=== PATIENT | female | born 1955 | race Caucasian/White ===

== ENCOUNTER 2017-08-15 05:46 | Inpatient (IN) | payer OTHER ==
[~2017-08-15 05:46] MED LIST: oxyCODONE HCL 5 MG TABLET PO ONE
[2017-08-15] MEDS ORDERED: TRANEXAMIC ACID 1000 MG/10 ML VIAL ONE (06:39)
[2017-08-15] MEDS ORDERED: ONDANSETRON 4 MG/2 ML VIAL ONE (06:40)
[2017-08-15] MEDS ORDERED: DEXAMETHASONE SOD PHOSPHATE 4 MG/1 ML VIAL ONE (06:40)
[2017-08-15] MEDS ORDERED: ceFAZolin SODIUM 1 GM VIAL ONE (06:40)
[2017-08-15] MEDS ORDERED: VANCOMYCIN 1,000 MG VIAL (RESTRICTED TO ID ONLY) ONE (06:40)
[2017-08-15] MEDS ORDERED: PROPOFOL 20 ML ONE ×4 (06:40→10:01)
[2017-08-15] MEDS ORDERED: MIDAZOLAM HCL 2 MG/2 ML SINGLE DOSE VIAL ONE (06:41)
[2017-08-15] MEDS ORDERED: BUPIVACAINE LIPOSOME/PF (EXPAREL) 266 MG/20 ML VIAL ONE (06:44)
[2017-08-15] MEDS ORDERED: BUPIVACAINE HCL/PF 2.5 MG/ML - 30 ML VIAL IJ ONE (06:44)
[2017-08-15 06:50] VITALS: BMI 30.6
[2017-08-15] MEDS ORDERED: BUPIVACAINE HCL/PF (5 MG/ML) 30 ML VIAL IJ ONE (06:58)
[2017-08-15] MEDS ORDERED: PHENYLEPHRINE HCL 10 MG/1 ML SINGLE DOSE VIAL ONE (08:32)
[2017-08-15] MEDS ORDERED: KETOROLAC TROMETHAMINE 30 MG/1 ML VIAL ONE (08:57)
[2017-08-15] MEDS ORDERED: BENZOIN/ALOE VERA/STORAX/TOLU 58 ML BOTTLE ONE (10:41)
--- NOTE | 2017-08-15 10:50 | OP ---
Operative Note - Note: Operative Date: 08/15/17 Pre-Operative Diagnosis: Left knee endoprosthesis arthrofibrosis Operation: 1. Revision left knee endoprosthesis. 2. Exchange of polyethylene liner Findings: Arthrofibrosis Implants: DePuy LPS Post-Operative Diagnosis: Same as Pre-op Surgeon: Apolinar Uribe Cleaner Carpet And Upholstery: Jordan Uribe Anesthesiologist/CLOTH FINISHING RANGE BACK TENDER: Jethro Herrera Anesthesia: Spinal Specimens Removed: Polyethylene liner. Left knee arthrofibrosis Estimated Blood Loss (mls): 50 Drains & Tubes with Location: 1 x deep HemoVac Fluid Volume Replaced (mls): 1,000 Operative Report Dictated: Yes
[2017-08-15] MEDS ORDERED: MAGNESIUM HYDROX 2400MG/30ML ORAL SUSPENSION 30 ML CUP PO PRN (10:54)
[2017-08-15] MEDS ORDERED: MAG HYDROX/AL HYDROX/SIMETH 30 ML UNIT-DOSE CUP PO PRN (10:54)
--- NOTE | 2017-08-15 10:54 | PN ---
Progress Note (short form) - Note Progress Note: 62F s/p revision left knee endoprosthesis TKA POD #0. -Pain control. -DVT PPx: -Chemical: ASA 81mg PO BID x 6 weeks. -Mechanical: SCD's, ALDEN's. -Incentive spirometry. -PT/OT/Rehab, OOB. -WBAT LLE. -f/u AM labs. -f/u OR pathology. -Diet as tolerated. -f/u drain output. -Care per medical hospitalist team. -Discharge planning: f/u [facility] [place] [facility] 08/23/2017; call for appointment: . -Will follow. Apolinar Uribe MD (Orthopaedic Surgery).
[2017-08-15] MEDS ORDERED: LACTATED RINGERS SOLUTION 1,000 ML IV SCH ×2 (11:00→11:30)
[2017-08-15] MEDS ORDERED: oxyCODONE HCL 5 MG TABLET PO PRN ×2 (11:20→11:50)
[2017-08-15] MEDS ORDERED: ONDANSETRON 4 MG/2 ML VIAL IVPUSH PRN (11:20)
[2017-08-15] MEDS ORDERED: ONDANSETRON 4 MG/2 ML VIAL IVPUSH ONE (11:47)
[2017-08-15] MEDS ORDERED: ACETAMINOPHEN 325 MG TABLET (FP) ONE (11:53)
[2017-08-15] MEDS ORDERED: ACETAMINOPHEN 325 MG TABLET (FP) PO ONE (12:00)
[2017-08-15] MEDS ORDERED: oxyCODONE HCL 5 MG TABLET ONE (13:04)
[2017-08-15] MEDS ORDERED: LORATADINE 10 MG TABLET PO PRN (16:32)
[2017-08-15] MEDS: oxyCODONE HCL 5 MG TABLET PO PRN ×2 (17:15→20:11)
[2017-08-15] MEDS: CEFAZOLIN 1 GM/D5W 1 GM/50 ML BAG IVPB SCH (17:18)
[2017-08-15] MEDS: ACETAMINOPHEN 325 MG TABLET (FP) PO SCH (17:18)
[2017-08-15] MEDS: ONDANSETRON 4 MG/2 ML VIAL IVPUSH PRN (18:40)
[2017-08-15] MEDS: oxyCODONE HCL 10 MG SUSTAINED ACTING TABLET PO SCH (21:31)
[2017-08-15] MEDS: ASPIRIN 81 MG CHEWABLE TABLETS PO SCH (21:32)
[2017-08-15] MEDS: SENNOSIDES/DOCUSATE COMBO (SENNA PLUS) TABLET (UD) PO SCH (21:32)
[2017-08-15] MEDS: GABAPENTIN 300 MG CAPSULE (FP) PO SCH (21:32)
[2017-08-16] MEDS: CEFAZOLIN 1 GM/D5W 1 GM/50 ML BAG IVPB SCH (00:31)
[2017-08-16] MEDS: ACETAMINOPHEN 325 MG TABLET (FP) PO SCH ×5 (00:31→23:04)
[2017-08-16] MEDS: oxyCODONE HCL 5 MG TABLET PO PRN ×4 (00:33→21:53)
[2017-08-16] MEDS: ONDANSETRON 4 MG/2 ML VIAL IVPUSH PRN (05:37)
[2017-08-16 08:59] LABS: HEMATOCRIT 34.5 % (32.4-45.2); HEMOGLOBIN 12.4 GM/dl (10.7-15.3); MCH 32.4 pg (25.7-33.7); MCHC 35.8 g/dl (32.0-36.0); MEAN CELL VOLUME 90.4 fl (80-96); MEAN PLT VOLUME 8.2 fl (7.5-11.1); PLATELET COUNT 290 K/MM3 (134-434); RBC 3.81 M/mm3 (3.60-5.2); RDW 13.2 % (11.6-15.6); WHITE BLOOD COUNT 14.1 K/mm3 (4.0-10.8)
[2017-08-16 09:05] LABS: ANION GAP 9 (8-16); BLOOD UREA NITROGEN 14 mg/dl (7-18); CALCIUM 8.8 mg/dl (8.4-10.2); CHLORIDE 105 mmol/L (98-107); CO2 26 mmol/L (22-28); CREATININE 0.7 mg/dl (0.6-1.3); GLUCOSE,RANDOM 142 mg/dl (74-106); POTASSIUM 4.1 mmol/L (3.5-5.1); SODIUM 140 mmol/L (136-145)
[2017-08-16] MEDS: GABAPENTIN 300 MG CAPSULE (FP) PO SCH ×2 (09:57→21:45)
[2017-08-16] MEDS: VALSARTAN 160 MG TABLET (UD) PO SCH (09:57)
[2017-08-16] MEDS: oxyCODONE HCL 10 MG SUSTAINED ACTING TABLET PO SCH ×2 (09:57→21:46)
[2017-08-16] MEDS: ASPIRIN 81 MG CHEWABLE TABLETS PO SCH ×2 (09:57→21:45)
[2017-08-16] MEDS: PANTOPRAZOLE 40 MG TABLET (FP) PO SCH (09:58)
[2017-08-16] MEDS: amLODIPine BESYLATE 5 MG TABLET (FP) PO SCH (09:58)
[2017-08-16] MEDS: SENNOSIDES/DOCUSATE COMBO (SENNA PLUS) TABLET (UD) PO SCH ×2 (09:58→21:46)
[2017-08-16] MEDS ORDERED: PATIENT'S OWN MEDICATION (NON-FORMULARY) (Amlodipine/Valsartan [Exforge 5-160 Mg Tablet] 1 PO SCH (10:00)
--- NOTE | 2017-08-16 10:01 | CONSULT ---
Consultation: REQUESTING PROVIDER: Dr Uribe CONSULT REQUEST: We have been asked to medically evaluate this patient for medical management. HISTORY OF PRESENT ILLNESS:Patient is a 62-year-old female, with a past medical history of hypertension, Osteoarthritis and osteosarcoma. Patient is status post left revision left knee with replacement, Dr Uribe, spinal anesthesia. REVIEW OF SYSTEMS: CONSTITUTIONAL: Absent: fever, chills, diaphoresis, generalized weakness, malaise, loss of appetite, weight change HEENT: Absent: rhinorrhea, nasal congestion, throat pain, throat swelling, difficulty swallowing, mouth swelling, ear pain, eye pain, visual changes CARDIOVASCULAR: Absent: chest pain, syncope, palpitations, irregular heart rate, lightheadedness , peripheral edema RESPIRATORY: Absent: cough, shortness of breath, dyspnea with exertion, orthopnea, wheezing, stridor, hemoptysis GASTROINTESTINAL: Absent: abdominal pain, abdominal distension, nausea, vomiting, diarrhea, constipation, melena, hematochezia GENITOURINARY: Absent: dysuria, frequency, urgency, hesitancy, hematuria, flank pain, genital pain MUSCULOSKELETAL: present: left knee pain Absent: myalgia, arthralgia, joint swelling, back pain, neck pain SKIN: Absent: rash, itching, pallor HEMATOLOGIC/IMMUNOLOGIC: Absent: easy bleeding, easy bruising, lymphadenopathy, frequent infections ENDOCRINE: Absent: unexplained weight gain, unexplained weight loss, heat intolerance, cold intolerance NEUROLOGIC: Absent: headache, focal weakness or paresthesias, dizziness, unsteady gait, seizure, mental status changes, bladder or bowel incontinence PSYCHIATRIC: Absent: anxiety, depression, suicidal or homicidal ideation, hallucinations. PHYSICAL EXAMINATION Vital Signs - 24 hr 08/15/17 08/15/17 08/15/17 11:17 11:23 11:28 Temperature 98 F Pulse Rate 86 85 80 Respiratory 16 16 16 Rate Blood Pressure 126/67 128/78 127/89 O2 Sat by Pulse 95 96 Oximetry (%) 08/15/17 08/15/17 08/15/17 11:33 11:45 12:00 Temperature Pulse Rate 77 83 79 Respiratory 16 16 16 Rate Blood Pressure 118/72 114/74 122/72 O2 Sat by Pulse 97 97 98 Oximetry (%) 08/15/17 08/15/17 08/15/17 12:15 12:30 12:45 Temperature Pulse Rate 81 73 76 Respiratory 16 16 16 Rate Blood Pressure 107/71 115/72 112/67 O2 Sat by Pulse 96 96 96 Oximetry (%) 08/15/17 08/15/17 08/15/17 13:00 13:50 21:00 Temperature 98.3 F 97.7 F Pulse Rate 76 74 Respiratory 16 16 16 Rate Blood Pressure 122/66 113/68 O2 Sat by Pulse 97 97 Oximetry (%) 08/15/17 08/16/17 22:00 06:00 Temperature 97.8 F 97.9 F Pulse Rate 79 81 Respiratory 20 19 Rate Blood Pressure 108/64 118/60 O2 Sat by Pulse 92 L 95 Oximetry (%) GENERAL: Awake, alert, and fully oriented, in no acute distress. HEAD: Normal with no signs of trauma. EYES: Pupils equal, round and reactive to light, extraocular movements intact, sclera anicteric, conjunctiva clear. No lid lag. EARS, NOSE, THROAT: Ears normal, nares patent, oropharynx clear without exudates. Moist mucous membranes. NECK: Normal range of motion, supple without lymphadenopathy, JVD, or masses. LUNGS: Breath sounds equal, clear to auscultation bilaterally. No wheezes, and no crackles. No accessory muscle use. HEART: Regular rate and rhythm, normal S1 and S2 without murmur, rub or gallop. ABDOMEN: Soft, nontender, not distended, normoactive bowel sounds, no guarding, no rebound, no masses. No hepatomegaly or splenomegaly. MUSCULOSKELETAL: Normal range of motion at all joints. No bony deformities or tenderness. No CVA tenderness. UPPER EXTREMITIES: 2+ pulses, warm, well-perfused. No cyanosis. No clubbing. Cap refill <2 seconds. No peripheral edema. LOWER EXTREMITIES: 2+ pulses, warm, well-perfused. No calf tenderness. No peripheral edema. LEFT LOWER EXTREMITY: Dressing CDI, less than 2 second capillary refill +3 pedal pulses Hemovac drainage scant drainage noticed NEUROLOGICAL: Cranial nerves II-XII intact. Normal speech. Normal gait. PSYCHIATRIC: Cooperative. Good eye contact. Appropriate mood and affect. SKIN: Warm, dry, normal turgor, no rashes or lesions noted. Laboratory Results - last 24 hr 08/15/17 08/15/17 08/16/17 09:24 09:24 08:30 WBC 14.1 H RBC 3.81 Hgb 12.4 Hct 34.5 MCV 90.4 MCH 32.4 MCHC 35.8 RDW 13.2 Plt Count 290 MPV 8.2 Sodium Potassium Chloride Carbon Dioxide Anion Gap BUN Creatinine Creat Clearance w eGFR Random Glucose Calcium Hep C Ab Diagnostic <0.1 Liver Fibrosis Interp HIV 1&2 Antibody Screen Negative HIV P24 Antigen Negative 08/16/17 08:30 WBC RBC Hgb Hct MCV MCH MCHC RDW Plt Count MPV Sodium 140 Potassium 4.1 Chloride 105 Carbon Dioxide 26 Anion Gap 9 BUN 14 Creatinine 0.7 Creat Clearance w eGFR > 60 Random Glucose 142 H Calcium 8.8 Hep C Ab Diagnostic Liver Fibrosis Interp HIV 1&2 Antibody Screen HIV P24 Antigen Active Medications Generic Name Dose Route Start Last Admin Trade Name Freq PRN Reason Stop Dose Admin Acetaminophen 650 mg 08/15/17 12:00 08/16/17 05:46 Tylenol - PO 08/18/17 11:59 650 mg Q6H DONTE Administration Al Hydroxide/Mg Hydroxide 30 ml 08/15/17 10:54 Mylanta Oral Suspension - PO Q4H PRN DYSPEPSIA Amlodipine Besylate 5 mg 08/16/17 10:00 08/16/17 09:58 Norvasc - PO 5 mg DAILY DONTE Administration Aspirin 81 mg 08/15/17 22:00 08/16/17 09:57 Asa - PO 81 mg BID DONTE Administration Fentanyl 25 mcg 08/15/17 11:20 Sublimaze Injection - IVPUSH [id number] PRN PAIN-PACU ORDER X 4 DOSES ONLY Gabapentin 300 mg 08/15/17 22:00 08/16/17 09:57 Neurontin - PO 300 mg BID DONTE Administration Lactated Ringer's 1,000 mls @ 75 mls/hr 08/15/17 11:30 Lactated Ringers Solution IV ASDIR DONTE Loratadine 10 mg 08/15/17 16:32 Claritin - PO Q24H PRN NASAL CONGESTION Magnesium Hydroxide 30 ml 08/15/17 10:54 Milk Of Magnesia - PO PRN PRN CONSTIPATION Ondansetron HCl 4 mg 08/15/17 10:54 08/16/17 05:37 Zofran Injection IVPUSH 4 mg Q6H PRN Administration NAUSEA Ondansetron HCl 4 mg 08/15/17 11:20 Zofran Injection IVPUSH Q6H PRN NAUSEA AND/OR VOMITING Oxycodone HCl 10 mg 08/15/17 11:50 08/16/17 05:45 Roxicodone - PO 10 mg Q3H PRN Administration PAIN LEVEL 6-10 Oxycodone HCl 5 mg 08/15/17 11:50 Roxicodone - PO Q3H PRN PAIN LEVEL 1-5 Oxycodone HCl 10 mg 08/15/17 22:00 08/16/17 09:57 Oxycontin - PO 08/18/17 11:50 10 mg BID DONTE Administration Pantoprazole Sodium 40 mg 08/16/17 10:00 08/16/17 09:58 Protonix - PO 40 mg DAILY DONTE Administration Senna/Docusate Sodium 1 tablet 08/15/17 22:00 08/16/17 09:58 Pericolace - PO 1 tablet BID DONTE Administration Valsartan 160 mg 08/16/17 10:00 08/16/17 09:57 Diovan - PO 160 mg DAILY DONTE Administration ASSESSMENT/PLAN: 1) MS S/P last total knee replacement (revision) postoperative day 1 - Physical therapy as per orthopedist - repeat hemoglobin this morning 12.4, close mnonitoring of H&H and Hemovac drainage - incentive spirometer 2) cardiovascular hypertension - continue diovan and norvasc - blood pressure at goal, strict monitoring Dispo: We will continue to follow the patient. Thank you for this consultative opportunity.
--- NOTE | 2017-08-16 13:37 | PATH ---
Surgical Pathology Report Patient Name: SHASHI RODRIGUEZ Med. Rec. #: [id number] /Age/Gender: 1955 (Age: 62) / F Account: [id number] Location: [facility] MED-SURG Taken: 08/15/2017 Received: 08/15/2017 Reported: 08/16/2017 Physicians: Apolinar Uribe M.D. Specimen(s) Received A: LEFT KNEE FIBROSIS B: TIBIAL INSERT Clinical History Failed prosthesis Final Diagnosis A. KNEE, LEFT, FIBROSIS, LEFT TOTAL KNEE REPLACEMENT REVISION: BENIGN DENSE FIBROUS TISSUE. B. TIBIAL INSERT, REMOVAL: SURGICAL HARDWARE. MACROSCOPIC DIAGNOSIS. Electronically Signed Desirae Keys M.D. Gross Description A. Received in formalin labeled "left knee fibrosis," and a 7.5 x 6.0 x 1.0 cm aggregate of blair, soft and fibrous tissue fragments. Global Security Architect sections are submitted in one cassette. B. Received fresh labeled "tibial insert," is an 8.0 x 5.4 x 3.7 cm roque metallic and white plastic foreign body, consistent with a knee prosthesis. No soft tissue is present. No sections are submitted, gross only. /08/15/2017 saudi08/15/2017
[2017-08-17] MEDS: ACETAMINOPHEN 325 MG TABLET (FP) PO SCH ×2 (06:17→12:41)
[2017-08-17 06:31] VITALS: TEMP 98.6
[2017-08-17 08:59] LABS: HEMATOCRIT 34.2 % (32.4-45.2); HEMOGLOBIN 11.9 GM/dl (10.7-15.3); MCH 31.4 pg (25.7-33.7); MCHC 34.8 g/dl (32.0-36.0); MEAN CELL VOLUME 90.4 fl (80-96); MEAN PLT VOLUME 8.1 fl (7.5-11.1); PLATELET COUNT 298 K/MM3 (134-434); RBC 3.78 M/mm3 (3.60-5.2); RDW 13.4 % (11.6-15.6)
[2017-08-17] MEDS: GABAPENTIN 300 MG CAPSULE (FP) PO SCH (09:37)
[2017-08-17] MEDS: VALSARTAN 160 MG TABLET (UD) PO SCH (09:37)
[2017-08-17] MEDS: ASPIRIN 81 MG CHEWABLE TABLETS PO SCH (09:37)
[2017-08-17] MEDS: amLODIPine BESYLATE 5 MG TABLET (FP) PO SCH (09:38)
[2017-08-17] MEDS: PANTOPRAZOLE 40 MG TABLET (FP) PO SCH (09:38)
[2017-08-17] MEDS: oxyCODONE HCL 10 MG SUSTAINED ACTING TABLET PO SCH (09:38)
[2017-08-17] MEDS: SENNOSIDES/DOCUSATE COMBO (SENNA PLUS) TABLET (UD) PO SCH (09:38)
--- NOTE | 2017-08-17 12:17 | DS ---
Physical Exam: SUBJECTIVE: Patient seen and examined, patient Ambulated physical therapy reports feeling well denies any paresthesias to left lower extremity, reports pain upon movement, patient denies any chest pain or shortness of breath OBJECTIVE:Patient is a 62-year-old female, with a past medical history of hypertension, Osteoarthritis and osteosarcoma. Patient is status post left revision left knee with replacement, Dr Uribe, spinal anesthesia. Vital Signs Period Temp Pulse Resp BP Sys/Tee Pulse Ox Last 24 Hr 97.6 F-98.6 F 78-104 16-18 119-132/63-74 91-98 PHYSICAL EXAM LABS Laboratory Results - last 24 hr 08/17/17 08:00 WBC 11.0 H RBC 3.78 Hgb 11.9 Hct 34.2 MCV 90.4 MCH 31.4 MCHC 34.8 RDW 13.4 Plt Count 298 MPV 8.1 HOSPITAL COURSE: Date of Admission:08/15/17 Date of Discharge: 08/17/17 Minutes to complete discharge: 45 Discharge Summary - Instructions Diet, Activity, Other Instructions: Post-op Instructions-Total knee replacement Call the office for a follow-up appointment in 1 week - Aspirin 81mg daily for 6 weeks. Pain medication was sent into your pharmacy. Apply Graduated Compression Stockings (TEDs) to both lower extremities- remove daily for hygiene ONLY use brace while awake Apply cold packs to affected area for 15 minutes every 2 hours. Physical Therapist will come to your home for the first 5 days. You will be set up with outpatient PT at your first post-operative visit. Patient may ambulate as tolerated-encourage self care (at least every 2-3 hours while awake) with walker or cane Maintain dressing to operative wound (will be removed by surgeon at first office visit) Shower with dressing in place-if integrity compromised, remove and apply dry sterile dressing and notify Orthopedist. DO NOT SHOWER unless Orthopedist approves without dressing CONTACT THE OFFICE FOR ANY CHANGE IN YOUR CONDITION (for example-fever greater than 102 degrees,excessive bleeding from operative site, purulent drainage, severe swelling or pain) GO TO THE EMERGENCY ROOM IF THERE IS A MEDICAL EMERGENCY Referrals: Jordan Uribe MD [Staff Physician] - Disposition: HOME - Home Medications Comprehensive Discharge Medication List: Ambulatory Orders Amlodipine/Valsartan [Exforge 5-160 mg Tablet] 1 tab PO DAILY 07/31/17 Cetirizine HCl [Zyrtec -] 10 mg PO DAILY PRN 07/31/17 Lorazepam 1 mg PO ASDIR PRN 07/31/17 Oxycodone HCl/Acetaminophen [Oxycodone-Acetaminophen 10-325] 1 each PO ASDIR PRN 07/31/17 Ranitidine [Zantac -] 300 mg PO HS PRN 07/31/17 Rosuvastatin Calcium [Crestor] 20 mg PO HS 07/31/17
[2017-08-17] MEDS: oxyCODONE HCL 5 MG TABLET PO PRN (12:39)
[2017-08-17 12:56] VITALS: BP 120/66; PULSE 74
== END 2017-08-17 13:15 | disposition home or self-care (01) | DRG 302 ==
LOC: FM/S 05:46
PROVIDERS: ADMIT Orthopaedic Surgery Orthopaedic Surgery of the Spine; ATTEND Orthopaedic Surgery Orthopaedic Surgery of the Spine
PROC: 0SUD09C Supplement Left Knee Joint with Liner, Patellar Surface, Open Approach (ICD-10-PCS; 2017-08-15)
PROC: 0SRW0JZ Replacement of Left Knee Joint, Tibial Surface with Synthetic Substitute, Open Approach (ICD-10-PCS; 2017-08-15)
PROC: 0SPD09Z Removal of Liner from Left Knee Joint, Open Approach (ICD-10-PCS; principal; 2017-08-15 09:03)
DX: M24.662 Ankylosis, left knee (principal); Z96.652 Presence of left artificial knee joint; I10 Essential (primary) hypertension; M19.90 Unspecified osteoarthritis, unspecified site; Z85.830 Personal history of malignant neoplasm of bone
CPT/HCPCS: 36415; 73560-TC-LT-FY; 80048; 85027; 87389; 88300-TC; 88304-TC; 94760; 97116-GP; 97162-GP